=== PATIENT | female | born 1970 ===

== ENCOUNTER 2017-03-10 08:23 | Emergency (ER) | payer SELFPAY ==
[2017-03-10 08:36] VITALS: BMI 28.4
--- NOTE | 2017-03-10 08:43 | C.PDOC ---
History Of Present Illness VIA TRANS NEW ONSET SLURRED SPEECH, RUE WEAKNESS NOW RESOLVED. PS AWOKE AT 0630 "FELT NORMAL", SON STATES MOM CALLED HIM AND SAID SHE "WASNT FEELING RIGHT". WEAK LIFTING R ARM. PER RN, PT INITIALLY NONVERBAL BUT WALKED TO TRIAGE. DENIES PMH, CURRENT MEDS. EXAM MILD DIST NONTOXIC VSS HEENT NEG EXT ATRAUM NARD NEURO SEE NIH REMAINDER NEG Time Seen by Provider: 03/10/17 08:37 History Per: Patient, Other (Maintenance Truck Driver) History/Exam Limitations: no limitations, language barrier Onset/Duration Of Symptoms: Sudden Onset (Around 0630) Past Medical History Reviewed: Historical Data, Nursing Documentation, Vital Signs Vital Signs: Last Vital Signs Temp 98.6 F 03/10/17 12:35 Pulse 90 03/10/17 12:40 Resp 22 03/10/17 12:40 BP 109/66 03/10/17 12:40 Pulse Ox 100 03/10/17 12:40 Family History: States: No Known Family Hx Review Of Systems Respiratory: Negative for: Shortness of Breath Gastrointestinal: Negative for: Nausea, Vomiting Musculoskeletal: Positive for: Other (Weakness in right arm ) Physical Exam - Physical Exam Appears: Non-toxic, No Acute Distress (Mild), Other (VSS) Skin: Warm, Dry Head: Atraumatic, Normacephalic Eye(s): bilateral: Normal Inspection, PERRL, EOMI Oral Mucosa: Moist Respiratory: Normal Breath Sounds, No Rales, No Rhonchi, No Stridor, No Wheezing Extremity: Normal ROM, No Tenderness, Capillary Refill (<2 secs), No Swelling Neurological/Psych: Other (See NIH) ED Course And Treatment - Laboratory Results Result Diagrams: 03/10/17 09:10 03/10/17 09:10 ECG: Interpreted By Me, Viewed By Me ECG Rhythm: Sinus Rhythm ECG Interpretation: Normal Rate From EC (BPM) - CT Scan/US CT - Head Other Rad Studies (CT/US): Read By Radiologist, Radiology Report Reviewed CT/US Interpretation: PROCEDURE: CT HEAD WITHOUT CONTRAST. HISTORY: Code Stroke. COMPARISON: None available. TECHNIQUE: Axial computed tomography images were obtained through the head/brain without intravenous contrast. Radiation dose: Total exam DLP = 850.68 mGy-cm. This CT exam was performed using one or more of the following dose reduction techniques: Automated exposure control, adjustment of the mA and/or kV according to patient size, and/ or use of iterative reconstruction technique. FINDINGS: HEMORRHAGE: No intracranial hemorrhage. BRAIN: No mass effect or edema. No atrophy or chronic microvascular ischemic changes. VENTRICLES: Unremarkable. No hydrocephalus. CALVARIUM: Unremarkable. PARANASAL SINUSES: Unremarkable as visualized. No significant inflammatory changes. MASTOID AIR CELLS: Unremarkable as visualized. No inflammatory changes. OTHER FINDINGS: None. IMPRESSION: Normal CT of the Head. No intracranial mass, hemorrhage or evidence of acute infarct. These findings were discussed by telephone with Dr. Mendez at 8:47 a.m. on 03/10/2017. CTA - Head & Neck Other Rad Studies (CT/US): Read By Radiologist, Radiology Report Reviewed CT/US Interpretation: PROCEDURE: CT Angiography of the Brain. HISTORY: RUE WEAKNESS, DYSARTHRIA. COMPARISON: None available. TECHNIQUE: CT angiography of the intracranial arteries was performed. Coronal and sagittal maximum intensity projection reformated images were generated. IV contrast: Visipaque 320, 100 cc. Radiation dose (DLP): 530.14 mGy-cm. This CT exam was performed using one or more of the following dose reduction techniques: Automated exposure control, adjustment of the mA and/or kV according to patient size, and/ or use of iterative reconstruction technique. FINDINGS: INTERNAL CEREBRAL ARTERIES: Unremarkable. The skull base, petrous, cavernous and supraclinoid segments are bilaterally widely patent. ANTERIOR CEREBRAL ARTERIES: Unremarkable. A1 and A2 segments are widely patent. Smaller distal branches unremarkable, as visualized. MIDDLE CEREBRAL ARTERIES: Unremarkable. M1 and M2 segments are widely patent. Perisylvian branches grossly symmetric. POSTERIOR CIRCULATION: Basilar Artery: Unremarkable. Distal Vertebral Arteries : Unremarkable. Posterior Cerebral Arteries: Unremarkable. Posterior Inferior Cerebellar Arteries: Unremarkable. NECK CTA RESULTS: Common carotid arteries: The bilateral common carotid appear widely patent from their origins to their bifurcations with no significant stenosis appreciated. No evidence to suggest common carotid artery dissection. Internal carotid arteries: No significant stenosis is appreciated throughout the cervical internal carotid artery segments bilaterally and there is no evidence of dissection either. Vertebral arteries: The bilateral vertebral arteries appear normal in caliber from their origins to their junction with the basilar artery. Vertebrobasilar system appears left dominant. No significant stenosis or definite pattern of dissection. Incidentally, the bilateral subclavian arteries are widely patent as well as the brachiocephalic artery. ANEURYSM/ VASCULAR MALFORMATIONS: None. OTHER FINDINGS: None. IMPRESSION: Unremarkable CT Angiography of the Brain and Neck. No significant stenosis appreciable or arteriovascular malformation or aneurysm evident. NIHSS Stroke Scale - Date/Time Evaluation Performed Date Performed: 03/10/17 Time Performed: 08:37 When Was NIHSS Performed: Code Stroke - How Severe is the Stroke Level of Consciousness: 0=Alert LOC to Questions: 0=Both comments correct LOC to commands: 0=Obeys both correctly Best Gaze: 0=Normal Visual: 0=No visual loss Facial: 0=Normal Motor Arm - Left: 0=No drift Motor Arm - Right: 0=No drift Motor Leg - Left: 0=No drift Motor Leg - Right: 0=No drift Limb Ataxia: 0=Absent Sensory: 0=Normal Best Language: 0=No aphasia Dysarthia: 1=Mild to moderate slurring Extinction & Inattention (Neglect): 0=Normal, no object Score: 1 NIHSS Stroke Scale 2 - Date/Time Evaluation Performed Date Performed: 03/10/17 Time Performed: 09:11 When Was NIHSS Performed: Code Stroke Re-evaluation - How Severe is the Stroke Level of Consciousness: 0=Alert LOC to Questions: 0=Both comments correct LOC to commands: 0=Obeys both correctly Best Gaze: 0=Normal Visual: 0=No visual loss Facial: 0=Normal Motor Arm - Left: 0=No drift Motor Arm - Right: 0=No drift Motor Leg - Left: 0=No drift Motor Leg - Right: 0=No drift Limb Ataxia: 0=Absent Sensory: 0=Normal Best Language: 0=No aphasia Dysarthia: 0=Normal articulation Extinction & Inattention (Neglect): 0=Normal, no object Score: 0 NIHSS Stroke Scale 3 - Date/Time Evaluation Performed Date Performed: 03/10/17 Time Performed: 11:23 When Was NIHSS Performed: Code Stroke Re-evaluation - How Severe is the Stroke Level of Consciousness: 0=Alert LOC to Questions: 0=Both comments correct LOC to commands: 0=Obeys both correctly Best Gaze: 0=Normal Visual: 0=No visual loss Facial: 2=Partial (lower face paralysis) Motor Arm - Left: 0=No drift Motor Arm - Right: 4=No movement Motor Leg - Left: 0=No drift Motor Leg - Right: 0=No drift Limb Ataxia: 0=Absent Sensory: 0=Normal Best Language: 0=No aphasia Dysarthia: 2=Severe, near unintelligible or worse Extinction & Inattention (Neglect): 0=Normal, no object Score: 8 Progress - Re-Evaluation Re-evaluation Note: 03/10/17 08:37 CODE STROKE ACTIVATED 03/10/17 08:48 D/W DR COOLEY CT HEAD NO ACUTE FINDINGS 03/10/17 08:50 D/W DR BLAKELY AWARE OF ER FINDINGS. NOT A TPA CANDIDATE @ THIS TIME. CT ANGIO, ASA, TELE. WILL CONSULT 03/10/17 09:11 SLURRED SPEECH RESOLVED. NO RECUR MOTOR WEAKNESS. FAMILY STATES PT NOW AT BASELINE. VSS. 03/10/17 11:24 CO RECUR RUE WEAKNESS, FACIAL DROOP DIFFICULTY SPEAKING. VSS. D.W DR BLAKELY WILL EVAL IN ER 03/10/17 11:36 D/W DR DURÁN C/F ICU ACCEPTS FOR ICU 03/10/17 11:53 REGISTRATION ADVISED PT MEDICAID IS INACTIVE, NOW SELF PAY EXAM UNCH PRIOR S/P TPA BOLUS. VSS. 03/10/17 12:01 S/P EVAL DR IRVAS, TRANSFER ARRANGED TO [place] FOR INTERVENTION. [facility] IS ACCEPTING PHYSICIAN. CARLTON ESTRADA AND LEEANNA NOTIFIED - Data Reviewed Data Reviewed: Lab, Diagnostic imaging, EKG, Old records - Critical Care Citical Care: Excluding Proc Time Critical Care Time: 120 minutes - Continuity of Care Discussed patient case with:: Patient, Family-HIPPA compliant Discussed pt. case with business transformation consultant/specialty: Neurology rTPA Inclusion/Exclusion - Refusal of Treatment Patient Refused Treatment: No - Inclusion Criteria for Altepase Patient is 18 years or Older: Yes The Clinical Diagnosis of Ischemic Stroke That is Causing a Potentially Disabling Neurological Deficit: Yes Time of Onset is Well Established to be Less Than 270 Minute Before Treatment Would Begin: Yes Risk/Benefit Discussed With Patient/Family Member Present: Yes - Exclusion Criteria for Altepase Uncontrolled Hypertension at Time of Treatment (Systolic BP above 185 or Diastolic BP above 110 mmHg): No Active Internal Bleeding: No Known Bleeding Diathesis Including but Not Limited to: Platelets Below 100,000/ mm,PTT Above 40 sec After Heparin Use, Current Use of Oral Anitcoagulant With INR Greater Than 1.7 or PT Greater Than 15 secs: No Evidence of an Intracranial Hemorrhage: No Evidence of Major Acute Infarct With Signs Greater Than 1/3 MCA Territory: No Suspicion of Subarachnoid Hemorrhage on Pretreatment Evaluation Even if CT Head Negative For Hemorrhage: No - Warning to TPA With Conditions Following Conditions Weighed Against Anticipated Benefit: Yes Condition: Stroke Serevity Too Mild, Rapid Improvement Medical Decision Making Medical Decision Making: PLAN: * CT - Head * CTA - Head & Neck * CXR * EKG * Troponin * CBC * CMP * Aspirin PO * Zofran IVP * Activase IV Disposition Counseled Patient/Family Regarding: Studies Performed, Diagnosis - Disposition Disposition: Trans to Other Acute Care Hosp Disposition Time: 12:02 Condition: SERIOUS Forms: [facility] (Bhutanese) - Clinical Impression Clinical Impression: TIA (transient ischemic attack), CVA (cerebral vascular accident) - Scribe Statement The provider has reviewed the documentation as recorded by the Scribe Naye Lopez Provider Attestation: All medical record entries made by the Scribe were at my direction and personally dictated by me. I have reviewed the chart and agree that the record accurately reflects my personal performance of the history, physical exam, medical decision making, and the department course for this patient. I have also personally directed, reviewed, and agree with the discharge instructions and disposition. Decision To Admit - Pt Status Changed To: Hospital Disposition Of: Inpatient - Admit Certification Admit to Inpatient:: After my assessment, the patient will require hospitalization for at least two midnights. This is because of the severity of symptoms shown, intensity of services needed, and/or the medical risk in this patient being treated as an outpatient. - InPatient: Physician Admission Certification: I certify that this patient requires 2 or more midnights of care for the following reason:: SEE NOTE - . Bed Request Type: ICU Admitting Physician: Eduar Estrada Patient Diagnosis: TIA (transient ischemic attack), CVA (cerebral vascular accident)
--- NOTE | 2017-03-10 08:50 | CT ---
PROCEDURE: CT HEAD WITHOUT CONTRAST. HISTORY: Code Stroke COMPARISON: None available. TECHNIQUE: Axial computed tomography images were obtained through the head/brain without intravenous contrast. Radiation dose: Total exam DLP = 850.68 mGy-cm. This CT exam was performed using one or more of the following dose reduction techniques: Automated exposure control, adjustment of the mA and/or kV according to patient size, and/or use of iterative reconstruction technique. FINDINGS: HEMORRHAGE: No intracranial hemorrhage. BRAIN: No mass effect or edema. No atrophy or chronic microvascular ischemic changes. VENTRICLES: Unremarkable. No hydrocephalus. CALVARIUM: Unremarkable. PARANASAL SINUSES: Unremarkable as visualized. No significant inflammatory changes. MASTOID AIR CELLS: Unremarkable as visualized. No inflammatory changes. OTHER FINDINGS: None. IMPRESSION: Normal CT of the Head. No intracranial mass, hemorrhage or evidence of acute infarct. These findings were discussed by telephone with Dr. Mendez at 8:47 a.m. on 03/10/2017.
[2017-03-10] MEDS ORDERED: Iodixanol 320 MG/ML 100 ML BOTTLE IV ONE (08:56)
[2017-03-10 09:08] VITALS: O2SAT 100
[2017-03-10 09:15] LABS: BASO # 0.1 K/uL (0.0-0.2); BASO % 0.9 % (0.0-2.0); EOS % 0.8 % (0.0-4.0); HEMATOCRIT 33.4 % (34.0-47.0); LYMPH # 1.2 K/uL (1.0-4.3); LYMPH % 19.9 % (20.0-40.0); MEAN CELL VOLUME 79.2 fL (81.0-99.0); MEAN CORPUSCULAR HEMOGLOBIN 25.8 pg (27.0-31.0); MEAN CORPUSCULAR HGB CONC 32.6 g/dL (33.0-37.0); MEAN PLATELET VOLUME 8.5 fL (7.2-11.7); MONO # 0.5 K/uL (0.0-0.8); MONO % 7.6 % (0.0-10.0); NRBC % 0.1 % (0.0-2.0); RED CELL DISTRIBUTION WIDTH 15.4 % (11.5-14.5); WHITE BLOOD COUNT 6.2 K/uL (4.8-10.8)
[2017-03-10 09:25] LABS: INR 1.1
[2017-03-10 09:59] LABS: ALB/GLOB RATIO 1.3 (1.0-2.1); ALKALINE PHOSPHATASE 82 U/L (38-126); ALT/SGPT 39 U/L (9-52); AST/SGOT 26 U/L (14-36); BILIRUBIN,TOTAL 0.4 mg/dL (0.2-1.3); BLOOD UREA NITROGEN 13 mg/dL (7-17); CALCIUM 8.6 mg/dl (8.6-10.4); CARBON DIOXIDE 27 mmol/L (22-30); CHLORIDE 105 mmol/L (98-107); CHOLESTEROL 239 mg/dL (0-199); GFR AFRICAN-AMERICAN > 60; GLUCOSE,RANDOM 121 mg/dL (65-105); POTASSIUM 3.9 mmol/L (3.6-5.2); SODIUM 141 mmol/L (132-148); TOTAL PROTEIN 7.6 g/dL (6.3-8.3)
--- NOTE | 2017-03-10 10:12 | RAD ---
HISTORY: code stroke COMPARISON: On FINDINGS: LUNGS: No active pulmonary disease. PLEURA: No significant pleural effusion identified, no pneumothorax apparent. CARDIOVASCULAR: Normal. OSSEOUS STRUCTURES: No significant abnormalities. VISUALIZED UPPER ABDOMEN: Normal. OTHER FINDINGS: None. IMPRESSION: No active disease.
--- NOTE | 2017-03-10 11:38 | CT ---
PROCEDURE: CT Angiography of the Brain. HISTORY: RUE WEAKNESS, DYSARTHRIA COMPARISON: None available. TECHNIQUE: CT angiography of the intracranial arteries was performed. Coronal and sagittal maximum intensity projection reformated images were generated. IV contrast: Visipaque 320, 100 cc. Radiation dose (DLP): 530.14 mGy-cm. This CT exam was performed using one or more of the following dose reduction techniques: Automated exposure control, adjustment of the mA and/or kV according to patient size, and/or use of iterative reconstruction technique. FINDINGS: INTERNAL CEREBRAL ARTERIES: Unremarkable. The skull base, petrous, cavernous and supraclinoid segments are bilaterally widely patent. ANTERIOR CEREBRAL ARTERIES: Unremarkable. A1 and A2 segments are widely patent. Smaller distal branches unremarkable, as visualized. MIDDLE CEREBRAL ARTERIES: Unremarkable. M1 and M2 segments are widely patent. Perisylvian branches grossly symmetric. POSTERIOR CIRCULATION: Basilar Artery: Unremarkable. Distal Vertebral Arteries: Unremarkable. Posterior Cerebral Arteries: Unremarkable. Posterior Inferior Cerebellar Arteries: Unremarkable. NECK CTA RESULTS: Common carotid arteries: The bilateral common carotid appear widely patent from their origins to their bifurcations with no significant stenosis appreciated. No evidence to suggest common carotid artery dissection. Internal carotid arteries: No significant stenosis is appreciated throughout the cervical internal carotid artery segments bilaterally and there is no evidence of dissection either. Vertebral arteries: The bilateral vertebral arteries appear normal in caliber from their origins to their junction with the basilar artery. Vertebrobasilar system appears left dominant. No significant stenosis or definite pattern of dissection. Incidentally, the bilateral subclavian arteries are widely patent as well as the brachiocephalic artery. ANEURYSM/ VASCULAR MALFORMATIONS: None. OTHER FINDINGS: None. IMPRESSION: Unremarkable CT Angiography of the Brain and Neck. No significant stenosis appreciable or arteriovascular malformation or aneurysm evident.
--- NOTE | 2017-03-10 12:09 | CP.PCM.CON ---
History of Present Illness - History of Present Illness History of Present Illness: Mrs. Villavicencio is a 46-year-old woman with no significant past medical history, who woke up normal this morning, but subsequently developed speech difficulty and right facial droop. She walked to the ED where she was noted to have speech difficulty, mostly unable to produce speech. CT scan of the head was done and was normal. The patient then began talking normally and was back to baseline with an NIHSS of 0. She was taken to CTA and when she came back, she was still normal, but shortly after 11:15 AM, she developed right facial droop, mutism and right upper extremity flaccid paralysis. Her NIHSS was now increased to 11. Since she had gone back to normal, the clock was reset, and the patient was a candidate for IV tPA. She was given the bolus dose and the infusion started. She was subsequently evaluated by Dr. Live (neurointervention), who reviewed the CTA and determined there is a left superior branch M2 occlusion. The decision was made to transfer the patient to [place] for angiogram and possible thrombectomy. Review of Systems - Review of Systems All systems: reviewed and no additional remarkable complaints except Past Patient History - Past Social History Smoking Status: Never Smoked - PSYCHIATRIC Hx Substance Use: No - SURGICAL HISTORY Hx Surgeries: No Meds Allergies/Adverse Reactions: Allergies Allergy/AdvReac Type Severity Reaction Status Date / Time No Known Allergies Allergy Verified 03/10/17 08:36 Physical Exam - Constitutional Appears: Well - Head Exam Head Exam: ATRAUMATIC, NORMAL INSPECTION, NORMOCEPHALIC - Eye Exam Eye Exam: EOMI, Normal appearance, PERRL - ENT Exam ENT Exam: Mucous Membranes Moist, Normal Exam - Neck Exam Neck exam: Positive for: Normal Inspection - Respiratory Exam Respiratory Exam: Clear to Auscultation Bilateral, NORMAL BREATHING PATTERN - Cardiovascular Exam Cardiovascular Exam: REGULAR RHYTHM, +S1, +S2 - GI/Abdominal Exam GI & Abdominal Exam: Normal Bowel Sounds, Soft. absent: Tenderness - Rectal Exam Rectal Exam: Deferred - Neurological Exam Neurological exam: Alert, CN II-XII Intact Additional comments: NIHSS = 11 - Expanded Neurological Exam Expanded Neurological exam: Expressive Aphasia Cranial nerves: EOM's Intact: Normal, Facial Sensation: Normal, Gag Reflex: Normal Ataxia: No Cerebellar Function: Finger to Nose: Abnormal Right, Heel to Crocker: Normal Upper motor neuron: Babinski Sign: Normal Sensory exam: Lower Extremity Light Touch: Normal, Lower Extremity Pin Prick: Normal, Upper Extremity Light Touch: Abnormal Right, Upper Extremity Pin Prick: Abnormal Right Neuro motor strength exam: Left Upper Extremity: 5, Right Upper Extremity: 0, Left Lower Extremity: 5, Right Lower Extremity: 4 DTR: Bicep Left: 0, Bicep Right: 0, Patellar Left: 0, Patellar Right: 0 - Psychiatric Exam Psychiatric exam: Flat Affect Results - Vital Signs Recent Vital Signs: Last Vital Signs Temp 98.1 F 03/10/17 08:47 Pulse 109 H 03/10/17 11:22 Resp 16 03/10/17 11:22 BP 132/63 03/10/17 11:22 Pulse Ox 100 03/10/17 11:22 - Labs Result Diagrams: 03/10/17 09:10 03/10/17 09:10 Labs: Laboratory Results - last 24 hr 03/10/17 03/10/17 03/10/17 08:31 09:10 09:10 WBC 6.2 RBC 4.22 Hgb 10.9 L Hct 33.4 L MCV 79.2 L MCH 25.8 L MCHC 32.6 L RDW 15.4 H Plt Count 341 MPV 8.5 Neut % (Auto) 70.8 Lymph % (Auto) 19.9 L [place] % (Auto) 7.6 Eos % (Auto) 0.8 Baso % (Auto) 0.9 Neut # 4.4 Lymph # 1.2 [place] # 0.5 Eos # 0.0 Baso # 0.1 PT 12.1 INR 1.1 APTT 23 Sodium Potassium Chloride Carbon Dioxide Anion Gap BUN Creatinine Est GFR ( Amer) Est GFR (Non-Af Amer) POC Glucose (mg/dL) 147 H Random Glucose Hemoglobin A1c Calcium Total Bilirubin AST ALT Alkaline Phosphatase Troponin I Total Protein Albumin Globulin Albumin/Globulin Ratio Triglycerides Cholesterol LDL Cholesterol Direct HDL Cholesterol Blood Type Antibody Screen 03/10/17 03/10/17 03/10/17 09:10 09:10 09:10 WBC RBC Hgb Hct MCV MCH MCHC RDW Plt Count MPV Neut % (Auto) Lymph % (Auto) [place] % (Auto) Eos % (Auto) Baso % (Auto) Neut # Lymph # [place] # Eos # Baso # PT INR APTT Sodium 141 Potassium 3.9 Chloride 105 Carbon Dioxide 27 Anion Gap 13 BUN 13 Creatinine 0.7 Est GFR ( Amer) > 60 Est GFR (Non-Af Amer) > 60 POC Glucose (mg/dL) Random Glucose 121 H Hemoglobin A1c 5.8 Calcium 8.6 Total Bilirubin 0.4 AST 26 ALT 39 Alkaline Phosphatase 82 Troponin I < 0.0120 Total Protein 7.6 Albumin 4.3 Globulin 3.3 Albumin/Globulin Ratio 1.3 Triglycerides 48 Cholesterol 239 H LDL Cholesterol Direct 116 HDL Cholesterol 95 H Blood Type O POSITIVE Antibody Screen Negative Assessment & Plan (1) Acute ischemic stroke Assessment and Plan: The patient was given IV tPA and there is a plan to transfer her for diagnostic cerebral angiogram and possible thrombectomy. We will continue IV fluids with NS at 100 mL/hr, keep her head at 15 degrees and follow the post-tPA protocol. Thank you. Status: Acute Priority: High
[2017-03-10 12:37] VITALS: TEMP 98.6
[2017-03-10 12:52] VITALS: BP 109/66; PULSE 90; RESP 22
--- NOTE | 2017-03-11 21:57 | CARD ---
APPROVED REPORT EKG Measurement Heart [id number] IL [id number] <Conclusion> Normal sinus rhythm Normal ECG
== END 2017-03-10 13:00 | disposition short-term general hospital (02) ==
LOC: C.ER 08:23 → UNDOADMIN 10:14 → C.9E 10:14
DX: I63.9 Cerebral infarction, unspecified (principal)
CPT/HCPCS: 37195; 70450; 70496; 70498; 71010; 80053; 80061; 82948; 83036; 84484; 85025; 85610; 85730; 86850; 86900; 93005; 96374; 99291; 99292; J2405; J2997; Q9967